=== PATIENT | male | born 1950 | race Hispanic/Latino ===

== ENCOUNTER 2016-05-03 10:25 | Emergency (ER) | payer OTHER ==
--- NOTE | 2016-05-03 11:53 | ER PHYSICIAN DOCUMENTATION ---
Physician Documentation [facility] Name:Alec Valentino Age:65 yrs Sex:Male :1950 Arrival Date:05/03/2016 Time:10:25 Bed6 Private MD: Ruperto Han Disposition: 05/03/16 11:26 Discharged to Home/Self Care. Impression: Thoracic Spine Compression Fracture, Hypertension. - Condition is Good. - Discharge Instructions: HYPERTENSION, Established, Columns, Vertebral - FRACTURE, Vertebral Compression. - Prescriptions for Hydrocodone- Acetaminophen 5-325 mg Oral Tablet - take 1 tablet by ORAL route every 6 hours As needed; 20 tablet. - Medical Reconciliation form form. - Follow up: [facility]; When: 2 - 3 days; Reason: Recheck today's complaints. - Problem is new. - Symptoms are unchanged. HPI: 05/03 11:27 This 65 yrs old Male presents to ER via EMS with complaints of Back Injury. sc 11:27 The patient presents with pain that is acute, and an injury. The symptoms are located sc in the thoracic area. Onset: The symptoms/episode began/occurred just prior to arrival. The pain does not radiate. Associated signs and symptoms: The patient has no apparent associated signs or symptoms. The problem was sustained at work, from a direct blow. Historical: - Allergies: No known drug Allergies; - Home Meds: 1. Metformin Oral 2. Lisinopril Oral - PMHx: Diabetes - NIDDM; Hypertension; - PSHx: tumor removal left neck; - Tetanus: unknown. - Ebola Screening: : Patient negative for fever greater than or equal to 101.5 degrees Fahrenheit, and additional compatible Ebola Virus Disease symptoms. Patient denies exposure to infectious person. Patient denies travel to an Ebola-affected area in the 21 days before illness onset. No symptoms or risks identified at this time. . - Immunization history: Pneumococcal vaccine is not up to date, Patient has never been vaccinated Flu Vaccine < 1 year. - Social history: Smoking status: Patient states was never smoker of tobacco. Patient uses alcohol occasionally. Patient/guardian denies using marijuana. ROS: 11:30 Constitutional: Negative for fever, chills, and weight loss. sc Eyes: Negative for injury, pain, redness, and discharge. ENT: Negative for injury, pain, and discharge. Neck: Negative for injury, pain, and swelling. Cardiovascular: Negative for chest pain, palpitations, and edema. Respiratory: Negative for shortness of breath, cough, wheezing, and pleuritic chest pain. Abdomen/GI: Negative for abdominal pain, nausea, vomiting, diarrhea, and constipation. : Negative for injury, bleeding, discharge, and swelling. MS/Extremity: Negative for injury and deformity. Skin: Negative for injury, rash, and discoloration. 11:30 Neuro: Negative for headache, weakness, numbness, tingling, and seizure. sc 11:30 Back: Positive for injury or acute deformity, Negative for pain with movement, radiated pain. Exam: Constitutional: This is a well developed, well nourished patient who is awake, alert, and in no acute distress. Head/Face: Normocephalic, atraumatic. Eyes: Pupils equal round and reactive to light, extra-ocular motions intact. Lids and lashes normal. Conjunctiva and sclera are non-icteric and not injected. Cornea within normal limits. Periorbital areas with no swelling, redness, or edema. ENT: Nares patent. No nasal discharge, no septal abnormalities noted. Tympanic membranes are normal and external auditory canals are clear. Oropharynx with no redness, swelling, or masses, exudates, or evidence of obstruction, uvula midline. Mucous membranes moist. Neck: Trachea midline, no thyromegaly or masses palpated, and no cervical lymphadenopathy. Supple, full range of motion without nuchal rigidity, or vertebral point tenderness. No meningismus. Chest/axilla: Normal chest wall appearance and motion. Nontender with no deformity. No lesions are appreciated. Cardiovascular: Regular rate and rhythm with a normal S1 and S2. No gallops, murmurs, or rubs. Normal PMI, no JVD. No pulse deficits. Respiratory: Lungs have equal breath sounds bilaterally, clear to auscultation and percussion. No rales, rhonchi or wheezes noted. No increased work of breathing, no retractions or nasal flaring. Abdomen/GI: Soft, non-tender, with normal bowel sounds. No distension or tympany. No guarding or rebound. No evidence of tenderness throughout. Skin: Warm, dry with normal turgor. Normal color with no rashes, no lesions, and no evidence of cellulitis. 11:30 Neuro: Awake and alert, GCS 15, oriented to person, place, time, and situation. sc Cranial nerves II-XII grossly intact. Motor strength 5/5 in all extremities. Sensory grossly intact. Cerebellar exam normal. Normal gait. 11:30 Back: pain, that is moderate, ROM is painless, normal spinal alignment noted, CVA tenderness, is absent, vertebral tenderness, is appreciated at T9. 11:44 Neuro: Sensation: is normal, Gait: is steady, Deep tendon reflexes are 2+ (normal) in sc the right patellar, right Achilles, left patellar and left Achilles. Vital Signs: 10:42 BP 182 / 92; Pulse 84; Resp 22; Temp 98.0; Pulse Ox 92% on R/A; Weight 70.31 kg; Height sj 5 ft. 6 in. (167.64 cm); Pain 5/10; 11:20 BP 167 / 103; Pulse 80; Resp 16; Pulse Ox 96% on R/A; Pain 6/10; sj 11:45 Pain 6/10; sj 10:42 Body Mass Index 25.02 (70.31 kg, 167.64 cm) MDM: 10:47 Patient medically screened. sc 11:31 Differential diagnosis: Fracture ruptured disc. Data reviewed: vital signs, nurses sc notes, radiologic studies, plain films, and as a result, I will discharge patient. Counseling: I had a detailed discussion with the patient and/or guardian regarding: the historical points, exam findings, and any diagnostic results supporting the discharge/admit diagnosis, radiology results, the need for outpatient follow up, to return to the emergency department if symptoms worsen or persist or if there are any questions or concerns that arise at home. Dispensed Medications: No medications were administered Point of Care Testing: Urine Dip: 11:07 pH: 5.5; ; Specific [place]: 1.030; Ketones: Trace; Glucose: Negative; Protein: sj Negative; Leukocytes: Negative; Nitrite: Negative ; Blood: Negative; Bilirubin: Negative ; Urobilinogen: Normal Signatures: Ruperto Robbins MD MD oh Cayla Roman
--- NOTE | 2016-05-03 11:53 | ER NURSING DOCUMENTATION ---
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 No LOC. No visible injuries or redness. Complains of pain to both sides of mid back and spine. Also now has headache to top of head. Denies nausea. Transition of care: Other work. Notified ED Physician of patient's arrival and CC Dr. Robbins notified. Care prior to arrival: IV initiated. gauge and site 22 g in right AC. 10:36 Method Of Arrival: EMS: 410 sj Triage Assessment: 10:40 General: Appears in no apparent distress, Behavior is cooperative, pleasant. Pain: sj Complains of pain in top of head, mid back bilaterally Pain currently is 5 out of 10 on a pain scale. Injury Description: Crush injury sustained to mid-back bilaterally is no visible injury or redness was sustained less than 30 minutes ago. Historical: - Allergies: No known drug Allergies; - Home Meds: 1. Metformin Oral 2. Lisinopril Oral - PMHx: Diabetes - NIDDM; Hypertension; - PSHx: tumor removal left neck; - Tetanus: unknown. - Ebola Screening: : Patient negative for fever greater than or equal to 101.5 degrees Fahrenheit, and additional compatible Ebola Virus Disease symptoms. Patient denies exposure to infectious person. Patient denies travel to an Ebola-affected area in the 21 days before illness onset. No symptoms or risks identified at this time. . - Immunization history: Pneumococcal vaccine is not up to date, Patient has never been vaccinated Flu Vaccine < 1 year. - Social history: Smoking status: Patient states was never smoker of tobacco. Patient uses alcohol occasionally. Patient/guardian denies using marijuana. Screenin:44 Infectious Disease Risk None. Abuse screen: Denies threats or abuse. Denies injuries sj from another. Nutritional screening: No deficits noted. Assessment: 11:06 Cardiovascular: Heart tones S1 S2 Chest pain is denied. Respiratory: Breath sounds are sj clear bilaterally. 11:52 Neuro: Level of Consciousness is awake, alert, Oriented to person, place, time, event. Vital Signs: 10:42 BP 182 / 92; Pulse 84; Resp 22; Temp 98.0; Pulse Ox 92% on R/A; Weight 70.31 kg; Height sj 5 ft. 6 in. (167.64 cm); Pain 5/10; 11:20 BP 167 / 103; Pulse 80; Resp 16; Pulse Ox 96% on R/A; Pain 6/10; sj 11:45 Pain 6/10; sj 10:42 Body Mass Index 25.02 (70.31 kg, 167.64 cm) ED Course: 10:26 Patient arrived in ED. lm3 10:30 Cayla Roman is Primary Nurse. 10:30 Triage completed. 10:43 Maintain field IV. Dressing intact. Site clean & dry. Gauge & site: 22 g R AC. sj 10:43 Valuables Remains with patient Patient has correct armband on for positive sj identification. Placed in gown. Bed in low position. Call light in reach. Side rails up X 1. 10:47 Ruperto Robbins MD is Attending Physician. wy 11:23 Maintain field IV. 11:25 [facility] is Referral Physician. wy Administered Medications: No medications were administered Point of Care Testing: Urine Dip: 11:07 pH: 5.5; ; Specific [place]: 1.030; Ketones: Trace; Glucose: Negative; Protein: sj Negative; Leukocytes: Negative; Nitrite: Negative ; Blood: Negative; Bilirubin: Negative ; Urobilinogen: Normal Outcome: 11:26 Discharge ordered by . wy 11:45 Discharged to home 11:45 Discharged to home ambulatory. 11:45 Condition: pain increasing 11:45 Instructed on discharge instructions, follow up and referral plans. Demonstrated understanding of instructions, medications, Prescriptions given X 1. 11:52 Patient left the ED. 05/04 10:12 Discharge F/U Call: Unable to reach: no answer st Signatures: Kika Martin, RN RN Ruperto Schofield MD MD sc Abbott, Cayla Skaggs Andie De La Cruz lm3
--- NOTE | 2016-05-03 12:09 | RADIOLOGY REPORT ---
Two views of the chest, without prior films for comparison, demonstrate the heart, vessels and lungs to be unremarkable. No infiltrate, fluid or pneumothorax is seen. Approximately 30% anterior compression deformity of T9 is noted. No encroachment upon the spinal canal is identified on these views. IMPRESSION: Approximately 30% anterior compression deformity of T9. If clinically indicated further evaluation with CT scanning and/or MRI scanning may be of benefit. MTDD
== END 2016-05-03 11:53 | disposition home or self-care (01) ==
LOC: EDBD 10:25 → ER 10:25
DX: S22.078A Other fracture of T9-T10 vertebra, initial encounter for closed fracture (principal); W22.8XXA Striking against or struck by other objects, initial encounter; Y92.69 Other specified industrial and construction area as the place of occurrence of the external cause; Y93.H3 Activity, building and construction; Y99.0 Civilian activity done for income or pay; Z74.3 Need for continuous supervision
CPT/HCPCS: 71020; 99283; A0425; A0429